=== PATIENT | male | born 1975 | race African-American/Black ===

== ENCOUNTER 2020-02-14 03:15 | Emergency (ER) | payer BC, OTHER ==
[~2020-02-14] VITALS: Ht 177.8 cm; Wt 86.2 kg
[2020-02-14] MEDS ORDERED: METOPROLOL TARTRATE 50 MG TABLET ONE (05:17)
[2020-02-14] MEDS ORDERED: METOPROLOL TARTRATE 50 MG TABLET PO ONE (05:30)
[2020-02-14 05:39] VITALS: BP 149/98
== END 2020-02-14 05:39 | disposition home or self-care (01) ==
LOC: ER 03:15
DX: I10 Essential (primary) hypertension (principal); Z76.0 Encounter for issue of repeat prescription; Z88.2 Allergy status to sulfonamides

== ENCOUNTER 2020-02-24 09:11 | Emergency (ER) | payer OTHER ==
[~2020-02-24] VITALS: Ht 170.2 cm; Wt 77.1 kg
[2020-02-24 09:21] VITALS: BP 144/90
--- NOTE | 2020-02-24 09:30 | NUR ---
SEAN PATEL AT BEDSIDE FOR EKG.
--- NOTE | 2020-02-24 10:29 | NUR ---
Patient discharged to home in stable condition. Written and verbal after care instructions given. Patient verbalizes understanding of instruction.
== END 2020-02-24 10:30 | disposition home or self-care (01) ==
LOC: ER 09:24
DX: I10 Essential (primary) hypertension (principal); F15.90 Other stimulant use, unspecified, uncomplicated; Z88.2 Allergy status to sulfonamides

== ENCOUNTER 2020-03-19 05:45 | Emergency (ER) | payer OTHER ==
[~2020-03-19] VITALS: Ht 177.8 cm; Wt 86.2 kg
--- NOTE | 2020-03-19 06:09 | NUR ---
PATIENT CAME TO ER BED 11 C/O CHEST PAIN SINCE 0200. PATIENT STATES THAT AT THAT TIME, HE WAS SMOKING METH. PATIENT IS AAOX4. NO SOB. BREATHING EVENLY AND UNLABORED ON ROOM AIR. CONNECTED TO MONITOR.
[2020-03-19 06:50] LABS: BASOPHILS % (AUTO) 0.7 % (0.0-2.0); EOSINOPHILS % (AUTO) 0.6 % (0.0-6.0); HEMATOCRIT 43 % (39-51); HEMOGLOBIN 14.1 g/dL (13.5-17.5); LYMPHOCYTES # (AUTO) 3.5 /CMM (0.8-4.8); LYMPHOCYTES % (AUTO) 51.9 % (20.0-44.0); MEAN CORPUSCULAR HGB CONC 33 g/dl (31.0-36.0); MEAN CORPUSCULAR VOLUME 92 fL (80-96); MONOCYTES # (AUTO) 0.4 /CMM (0.1-1.30); MONOCYTES % (AUTO) 5.6 % (2.0-12.0); NEUTROPHILS # (AUTO) 2.8 /CMM (1.8-8.9); NEUTROPHILS % (AUTO) 41.2 % (43.0-81.0); PLATELET COUNT (AUTO) 276 /CMM (150-450); RED BLOOD CELL COUNT(AUTO) 4.65 MIL/uL (4.5-6.0); WHITE BLOOD COUNT (AUTO) 6.8 K/uL (4.3-11.0)
[2020-03-19 06:51] LABS: CALCIUM, SERUM 9.2 mg/dL (8.5-10.1); CARBON DIOXIDE 24 mmol/L (21-32); CHLORIDE 101 mmol/L (98-107); CREATININE 1.5 mg/dL (0.6-1.3); GLUCOSE 114 mg/dL (74-106); POTASSIUM 3.7 mmol/L (3.5-5.1); SODIUM SERUM 136 mmol/L (136-145); UREA NITROGEN, BLOOD 14 mg/dL (7-18)
--- NOTE | 2020-03-19 07:18 | NUR ---
REPORT GIVEN TO JOSELITO BECERRA FOR ROSALBA.
[2020-03-19 08:16] VITALS: BP 131/81
--- NOTE | 2020-03-19 08:17 | NUR ---
Patient discharged to home in stable condition. Written and verbal after care instructions given. Patient verbalizes understanding of instruction.
== END 2020-03-19 08:16 | disposition home or self-care (01) ==
LOC: ER 05:47
DX: R07.89 Other chest pain (principal); F15.10 Other stimulant abuse, uncomplicated; R00.2 Palpitations; R42 Dizziness and giddiness; I10 Essential (primary) hypertension; Z88.2 Allergy status to sulfonamides; Z60.2 Problems related to living alone
CPT/HCPCS: 36415; 71045-TC; 80048-TC; 84484-TC; 85025-TC

== ENCOUNTER 2020-03-29 05:11 | Emergency (ER) | payer OTHER ==
[~2020-03-29] VITALS: Ht 177.8 cm; Wt 86.2 kg
--- NOTE | 2020-03-29 05:21 | NUR ---
PT PRESENTED TO THE ER WITH A C/O HIGH BP AFTER TAKING MARIJUANA, GHB, AND A LITTLE CRYSTAL METH. PT IS AA&O X4. PT WAS PLACED ON THE MONITOR AND CONTINUOUS PULSE OX. WILL CONTINUE TO MONITOR THE PT.
--- NOTE | 2020-03-29 05:38 | NUR ---
LAB DRAW IN PROGRESS AT THE BEDSIDE.
[2020-03-29 05:47] LABS: BASOPHILS % (AUTO) 0.6 % (0.0-2.0); EOSINOPHILS % (AUTO) 4.8 % (0.0-6.0); HEMATOCRIT 43 % (39-51); HEMOGLOBIN 14.4 g/dL (13.5-17.5); LYMPHOCYTES # (AUTO) 3.8 /CMM (0.8-4.8); LYMPHOCYTES % (AUTO) 54.3 % (20.0-44.0); MEAN CORPUSCULAR HGB CONC 33 g/dl (31.0-36.0); MEAN CORPUSCULAR VOLUME 93 fL (80-96); MONOCYTES # (AUTO) 0.7 /CMM (0.1-1.30); MONOCYTES % (AUTO) 9.3 % (2.0-12.0); NEUTROPHILS # (AUTO) 2.2 /CMM (1.8-8.9); PLATELET COUNT (AUTO) 272 /CMM (150-450); RED BLOOD CELL COUNT(AUTO) 4.69 MIL/uL (4.5-6.0); WHITE BLOOD COUNT (AUTO) 7.1 K/uL (4.3-11.0)
[2020-03-29 06:00] LABS: CALCIUM, SERUM 8.7 mg/dL (8.5-10.1); CREATININE 1.5 mg/dL (0.6-1.3); POTASSIUM 3.5 mmol/L (3.5-5.1)
--- NOTE | 2020-03-29 06:23 | NUR ---
Patient discharged to home in stable condition. Written and verbal after care instructions given. Patient verbalizes understanding of instruction.Pt ambulatory with a steady gait
[2020-03-29 06:24] VITALS: BP 158/103
== END 2020-03-29 06:24 | disposition home or self-care (01) ==
LOC: ER 05:14
DX: I10 Essential (primary) hypertension (principal); F19.10 Other psychoactive substance abuse, uncomplicated; Z88.2 Allergy status to sulfonamides; Z60.2 Problems related to living alone
CPT/HCPCS: 36415; 80048-TC; 85025-TC

== ENCOUNTER 2020-05-08 13:04 | Emergency (ER) | payer MEDICAID ==
[~2020-05-08] VITALS: Ht 177.8 cm; Wt 90.7 kg
[2020-05-08 13:27] VITALS: BP 147/78
--- NOTE | 2020-05-08 14:27 | NUR ---
Patient discharged to home in stable condition. Written and verbal after care instructions given. Patient verbalizes understanding of instruction.
== END 2020-05-08 14:28 | disposition home or self-care (01) ==
LOC: ER 13:05
DX: R25.3 Fasciculation (principal); I10 Essential (primary) hypertension; Z88.2 Allergy status to sulfonamides; Z60.2 Problems related to living alone

== ENCOUNTER 2020-07-21 07:21 | Emergency (ER) | payer MEDICAID ==
[~2020-07-21] VITALS: Ht 177.8 cm; Wt 86.2 kg
--- NOTE | 2020-07-21 07:35 | NUR ---
PT CAME TO ER WITH C/O PALPITATION. PT STATES HE TOOK METH LAST NIGHT. NO N/V. NO SWEATS AND CHILLS. NO C/O CP. AWAITING FOR MD SOUSA
[2020-07-21] MEDS ORDERED: LORAZEPAM 1 MG TABLET ONE (07:40)
[2020-07-21] MEDS ORDERED: IV NS 0.9% 1,000 ML BAG IV ONE (08:00)
[2020-07-21] MEDS ORDERED: LORAZEPAM 1 MG TABLET PO ONE (08:00)
[2020-07-21 08:33] LABS: BASOPHILS # (AUTO) 0.1 /CMM (0.0-0.2); BASOPHILS % (AUTO) 0.5 % (0.0-2.0); EOSINOPHILS % (AUTO) 0.8 % (0.0-6.0); HEMATOCRIT 45 % (39-51); LYMPHOCYTES # (AUTO) 3.7 /CMM (0.8-4.8); LYMPHOCYTES % (AUTO) 38.6 % (20.0-44.0); MEAN CORPUSCULAR HGB CONC 33 g/dl (31.0-36.0); MEAN CORPUSCULAR VOLUME 90 fL (80-96); MONOCYTES # (AUTO) 0.7 /CMM (0.1-1.30); MONOCYTES % (AUTO) 7.5 % (2.0-12.0); NEUTROPHILS % (AUTO) 52.6 % (43.0-81.0); PLATELET COUNT (AUTO) 328 /CMM (150-450); RED BLOOD CELL COUNT(AUTO) 4.99 MIL/uL (4.5-6.0); WHITE BLOOD COUNT (AUTO) 9.5 K/uL (4.3-11.0)
[2020-07-21 08:39] LABS: CARBON DIOXIDE 24 mmol/L (21-32); CHLORIDE 101 mmol/L (98-107); CREATININE 1.5 mg/dL (0.6-1.3); GLUCOSE 101 mg/dL (74-106); POTASSIUM 3.5 mmol/L (3.5-5.1); SODIUM SERUM 137 mmol/L (136-145); UREA NITROGEN, BLOOD 11 mg/dL (7-18)
[2020-07-21 08:44] LABS: ALANINE AMINOTRANSFERASE 45 U/L (12-78); ALCOHOL, BLOOD < 3 mg/dL (0-0); ALKALINE PHOSPHATASE 96 U/L (46-116); ASPARTATE AMINOTRANSFERASE 34 U/L (15-37); BILIRUBIN,DIRECT 0.1 mg/dL (0.0-0.2); BILIRUBIN,TOTAL 0.3 mg/dL (0.2-1.0); TOTAL PROTEIN, SERUM 8.7 g/dL (6.4-8.2)
[2020-07-21 08:46] LABS: ACETAMINOPHEN 0 ug/ml (10-30)
[2020-07-21 08:58] LABS: BILIRUBIN,URINE NEGATIVE (NEGATIVE); BLOOD, URINE LARGE Ery/uL (NEGATIVE); LEUKOCYTE ESTERASE ,URINE TRACE (NEGATIVE); NITRITE, URINE NEGATIVE (NEGATIVE); PROTEIN,URINE NEGATIVE (NEGATIVE); UGLUCOSE NEGATIVE (NEGATIVE); UROBILINOGEN,URINE 0.2 EU/dL (0.2)
[2020-07-21 09:48] VITALS: BP 178/105
[2020-07-21 09:48] LABS: BACTERIA,URINE Rare /HPF (None Seen); SQUAMOUS EPITHELIAL CELL,UR Rare /HPF (None Seen); WBC,URINE 0-2 /HPF (0-3)
[2020-07-21 09:50] LABS: COLOR,URINE Light yellow (YELLOW)
== END 2020-07-21 09:48 | disposition home or self-care (01) ==
LOC: ER 07:26
DX: R00.2 Palpitations (principal); F15.10 Other stimulant abuse, uncomplicated; R79.89 Other specified abnormal findings of blood chemistry; I10 Essential (primary) hypertension; Z60.2 Problems related to living alone; Z88.2 Allergy status to sulfonamides
CPT/HCPCS: 36415; 80048; 80076; 80299; 80307; 80320; 81001; 84484; 85025; 93005; 96360; 99284; J7030; 81000-TC; G0480

== ENCOUNTER 2020-08-06 04:13 | Emergency (ER) | payer MEDICAID ==
--- NOTE | 2020-08-06 05:06 | NUR ---
CALLED [facility] TRIAGE , NO ANSWER
--- NOTE | 2020-08-06 05:29 | NUR ---
CALLED FOR TRIAGE, NO ANSWER
== END 2020-08-06 06:04 | disposition left against medical advice (07) ==
LOC: ER 04:16
DX: Z02.89 Encounter for other administrative examinations (principal); Z53.21 Procedure and treatment not carried out due to patient leaving prior to being seen by health care provider

== ENCOUNTER 2020-09-17 10:14 | Emergency (ER) | payer MEDICAID ==
[~2020-09-17] VITALS: Ht 177.8 cm; Wt 86.2 kg
--- NOTE | 2020-09-17 10:29 | NUR ---
PT SELF PRESENTS TO ED. ROOMED. C/O L SIDED CHEST PAIN SINCE 0800 S/P SMOKING METH. APPEARS ANXIOUS. DENIES ANY OTHER COMPLAINT AT THIS TIME. 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 AWAITING MD SOUSA.
--- NOTE | 2020-09-17 10:40 | NUR ---
DR JONES AT BEDSIDE FOR EVAL.
--- NOTE | 2020-09-17 11:20 | NUR ---
ABE TEACHER AT BEDSIDE FOR BLOOD DRAW.
[2020-09-17 11:47] LABS: BASOPHILS % (AUTO) 0.8 % (0.0-2.0); HEMATOCRIT 44 % (39-51); HEMOGLOBIN 14.4 g/dL (13.5-17.5); LYMPHOCYTES % (AUTO) 56.7 % (20.0-44.0); MEAN CORPUSCULAR HGB CONC 33 g/dl (31.0-36.0); MEAN CORPUSCULAR VOLUME 90 fL (80-96); MONOCYTES # (AUTO) 0.6 /CMM (0.1-1.30); MONOCYTES % (AUTO) 11.9 % (2.0-12.0); NEUTROPHILS # (AUTO) 1.5 /CMM (1.8-8.9); NEUTROPHILS % (AUTO) 28.6 % (43.0-81.0); PLATELET COUNT (AUTO) 373 /CMM (150-450); RED BLOOD CELL COUNT(AUTO) 4.91 MIL/uL (4.5-6.0); WHITE BLOOD COUNT (AUTO) 5.4 K/uL (4.3-11.0)
[2020-09-17 11:58] LABS: CALCIUM, SERUM 9.1 mg/dL (8.5-10.1); CARBON DIOXIDE 27 mmol/L (21-32); CHLORIDE 99 mmol/L (98-107); CREATININE 1.4 mg/dL (0.6-1.3); GLUCOSE 92 mg/dL (74-106); POTASSIUM 3.8 mmol/L (3.5-5.1); SODIUM SERUM 137 mmol/L (136-145); UREA NITROGEN, BLOOD 11 mg/dL (7-18)
[2020-09-17 12:04] LABS: ALANINE AMINOTRANSFERASE 49 U/L (12-78); ALBUMIN 3.9 g/dL (3.4-5.0); ALKALINE PHOSPHATASE 78 U/L (46-116); ASPARTATE AMINOTRANSFERASE 31 U/L (15-37); BILIRUBIN,DIRECT 0.2 mg/dL (0.0-0.2); BILIRUBIN,TOTAL 0.8 mg/dL (0.2-1.0); TOTAL PROTEIN, SERUM 8.2 g/dL (6.4-8.2)
--- NOTE | 2020-09-17 14:30 | NUR ---
LAB BACK AT BEDSIDE FOR REPEAT TROPONIN BLOOD DRAW.
--- NOTE | 2020-09-17 15:25 | NUR ---
Patient discharged to home in stable condition. Written and verbal after care instructions given. Patient verbalizes understanding of instruction.
[2020-09-17 15:26] VITALS: BP 146/99
== END 2020-09-17 15:26 | disposition home or self-care (01) ==
LOC: ER 10:14
DX: R00.2 Palpitations (principal); R07.89 Other chest pain; F15.10 Other stimulant abuse, uncomplicated; I10 Essential (primary) hypertension; Z88.2 Allergy status to sulfonamides; Z60.2 Problems related to living alone
CPT/HCPCS: 36415; 71045-TC; 80048-TC; 80076-TC; 84484-TC; 85025-TC

== ENCOUNTER 2020-12-22 16:51 | Emergency (ER) | payer MEDICAID ==
[~2020-12-22] VITALS: Ht 170.2 cm; Wt 75.7 kg
[2020-12-22] MEDS ORDERED: PROCHLORPERAZINE EDISYLATE 10 MG/2 ML VIAL IVP ONE (17:30)
[2020-12-22] MEDS ORDERED: IV NS 0.9% 1,000 ML BAG IV ONE (17:30)
--- NOTE | 2020-12-22 17:30 | NUR ---
Patient came in to the er c/o Headache since this morning. On room air, breathing evenly and unlabored. Kept comfortable, will continue to monitor accordingly.
[2020-12-22] MEDS ORDERED: PROCHLORPERAZINE EDISYLATE 10 MG/2 ML VIAL ONE (17:56)
[2020-12-22 18:11] LABS: BASOPHILS % (AUTO) 0.5 % (0.0-2.0); EOSINOPHILS % (AUTO) 1.8 % (0.0-6.0); HEMATOCRIT 43 % (39-51); HEMOGLOBIN 14.3 g/dL (13.5-17.5); LYMPHOCYTES # (AUTO) 4.3 /CMM (0.8-4.8); LYMPHOCYTES % (AUTO) 59.3 % (20.0-44.0); MEAN CORPUSCULAR HGB CONC 33 g/dl (31.0-36.0); MEAN CORPUSCULAR VOLUME 88 fL (80-96); MONOCYTES # (AUTO) 0.8 /CMM (0.1-1.30); MONOCYTES % (AUTO) 10.8 % (2.0-12.0); NEUTROPHILS % (AUTO) 27.6 % (43.0-81.0); PLATELET COUNT (AUTO) 294 /CMM (150-450); RED BLOOD CELL COUNT(AUTO) 4.87 MIL/uL (4.5-6.0); WHITE BLOOD COUNT (AUTO) 7.3 K/uL (4.3-11.0)
--- NOTE | 2020-12-22 18:11 | NUR ---
IV access initiated on the right hand g18
[2020-12-22 18:21] LABS: CREATININE 1.3 mg/dL (0.6-1.3); POTASSIUM 3.9 mmol/L (3.5-5.1)
[2020-12-22 18:23] LABS: CALCIUM, SERUM 8.8 mg/dL (8.5-10.1)
[2020-12-22 18:28] LABS: ALBUMIN 3.5 g/dL (3.4-5.0); BILIRUBIN,DIRECT 0.1 mg/dL (0.0-0.2); BILIRUBIN,TOTAL 0.4 mg/dL (0.2-1.0); TOTAL PROTEIN, SERUM 7.9 g/dL (6.4-8.2)
[2020-12-22] MEDS ORDERED: BUTA1CAP46 PO (19:00)
[2020-12-22 19:32] VITALS: BP 135/78
--- NOTE | 2020-12-22 19:32 | NUR ---
Patient discharged to home in stable condition. Written and verbal after care instructions given. Patient verbalizes understanding of instruction.IV removed. Catheter intact and site benign. Pressure and 4x4 applied to site. No bleeding noted.
== END 2020-12-22 19:32 | disposition home or self-care (01) ==
LOC: ER 17:02
DX: R51.9 Headache, unspecified (principal); F15.10 Other stimulant abuse, uncomplicated; H93.11 Tinnitus, right ear; R74.01 Elevation of levels of liver transaminase levels; I10 Essential (primary) hypertension; Z88.2 Allergy status to sulfonamides; Z60.2 Problems related to living alone
CPT/HCPCS: 36415; 80048; 80076; 85025; 93005; 96361; 96374; 99284; J0780; J7030

== ENCOUNTER 2021-03-28 01:48 | Emergency (ER) | payer MEDICAID, OTHER ==
[~2021-03-28] VITALS: Ht 177.8 cm; Wt 81.6 kg
[~2021-03-28 01:48] MED LIST: BUTA1CAP46 PO
--- NOTE | 2021-03-28 02:05 | NUR ---
PATIENT BIBRA 62 C/O PALPITATIONS AND CHEST PRESSURE S/P METH USE 2HRS AGO. PATIENT IS A/O X 4, RR EVEN AND UNLABORED, NO SIGNS OF SOB NOTED. PATIENT CONNECTED TO CARDIA MONITOR AND POX.
--- NOTE | 2021-03-28 02:23 | NUR ---
URINE COLLECTED SENT TO LAB
[2021-03-28 02:53] LABS: BASOPHILS % (AUTO) 0.6 % (0.0-2.0); EOSINOPHILS % (AUTO) 2.3 % (0.0-6.0); HEMATOCRIT 42 % (39-51); HEMOGLOBIN 13.9 g/dL (13.5-17.5); LYMPHOCYTES # (AUTO) 3.2 K/uL (0.8-4.8); LYMPHOCYTES % (AUTO) 63.8 % (20.0-44.0); MEAN CORPUSCULAR HGB CONC 33 g/dl (31.0-36.0); MEAN CORPUSCULAR VOLUME 87 fL (80-96); MONOCYTES # (AUTO) 0.5 K/uL (0.1-1.30); MONOCYTES % (AUTO) 10.2 % (2.0-12.0); NEUTROPHILS # (AUTO) 1.2 K/uL (1.8-8.9); NEUTROPHILS % (AUTO) 23.1 % (43.0-81.0); PLATELET COUNT (AUTO) 338 K/uL (150-450); RED BLOOD CELL COUNT(AUTO) 4.87 MIL/uL (4.5-6.0)
[2021-03-28 03:07] LABS: ALANINE AMINOTRANSFERASE 33 U/L (12-78); ALBUMIN 3.8 g/dL (3.4-5.0); ALKALINE PHOSPHATASE 80 U/L (46-116); ASPARTATE AMINOTRANSFERASE 22 U/L (15-37); BILIRUBIN,DIRECT 0.1 mg/dL (0.0-0.2); BILIRUBIN,TOTAL 0.5 mg/dL (0.2-1.0); CALCIUM, SERUM 9.1 mg/dL (8.5-10.1); CARBON DIOXIDE 28 mmol/L (21-32); CHLORIDE 103 mmol/L (98-107); CREATININE 1.6 mg/dL (0.6-1.3); GLUCOSE 96 mg/dL (74-106); POTASSIUM 3.9 mmol/L (3.5-5.1); SODIUM SERUM 140 mmol/L (136-145); UREA NITROGEN, BLOOD 14 mg/dL (7-18)
[2021-03-28 04:40] VITALS: BP 123/74
--- NOTE | 2021-03-28 04:40 | NUR ---
Patient discharged to home in stable condition. Written and verbal after care instructions given. Patient verbalizes understanding of instruction.
== END 2021-03-28 04:41 | disposition home or self-care (01) ==
LOC: ER 01:49
DX: R00.2 Palpitations (principal); F15.10 Other stimulant abuse, uncomplicated; R07.89 Other chest pain; I10 Essential (primary) hypertension; Z88.2 Allergy status to sulfonamides; Z60.2 Problems related to living alone; Z79.899 Other long term (current) drug therapy
CPT/HCPCS: 36415; 71045-TC; 80048-TC; 80076-TC; 84484-TC; 85025-TC